=== PATIENT | male | born 1955 | race Caucasian/White ===

== ENCOUNTER 2018-02-19 01:48 | Inpatient (IN) ==
[2018-02-19] MEDS ORDERED: Dexamethasone Inj 20 MG/5 ML Vial IV.PUSH ONE (01:58)
[2018-02-19 02:13] LABS: Baso # (Auto) 0.1 th/mm3 (0.0-0.2); Baso % (Auto) 1.4 % (0.0-2.0); Eos # (Auto) 0.2 th/mm3 (0.0-0.4); Eos % (Auto) 1.8 % (0.0-4.0); Hematocrit 41.6 % (39.0-51.0); Hemoglobin 13.7 gm/dL (13.0-17.0); Lymph # (Auto) 1.3 th/mm3 (1.0-4.8); Lymph % (Auto) 13.4 % (9.0-44.0); Mean Corpuscular HGB Conc 32.9 % (32.0-36.0); Mean Corpuscular Hemoglobin 31.6 pg (27.0-34.0); Mean Platelet Volume 7.9 fL (7.0-11.0); Mono % (Auto) 9.9 % (0.0-8.0); Neut # (Auto) 7.1 th/mm3 (1.8-7.7); Neut % (Auto) 73.5 % (16.0-70.0); Platelet Count 320 th/mm3 (150-450); Red Blood Count 4.34 mil/mm3 (4.50-5.90); White Blood Count 9.7 th/mm3 (4.0-11.0)
[2018-02-19 02:23] LABS: Chloride 92 meq/L (98-107); Potassium 4.4 meq/L (3.5-5.1); Sodium 129 meq/L (136-145)
[2018-02-19 02:26] LABS: Albumin 3.3 g/dL (3.4-5.0); Anion Gap 7 meq/L (5-15); Calcium 8.1 mg/dL (8.5-10.1); Carbon Dioxide 30.4 meq/L (21.0-32.0); Glucose,Random 190 mg/dL (74-106)
[2018-02-19 02:27] LABS: Activated Partial Thrombo Time 26.6 sec (23.4-31.7); Blood Urea Nitrogen 10 mg/dL (7-18); Prothrombin Time 10.2 sec (9.8-11.6)
[2018-02-19 02:29] LABS: Alanine Aminotransferase 36 U/L (12-78); Aspartate Aminotransferase 48 U/L (15-37)
[2018-02-19 02:30] LABS: Glomerular Filtration Rate Greater Than 89 mL/min (>89)
[2018-02-19 02:31] LABS: Total Protein 8.2 g/dL (6.4-8.2)
[2018-02-19 02:32] LABS: Alkaline Phosphatase 108 U/L (45-117); Creatine Kinase 336 U/L (39-308)
--- NOTE | 2018-02-19 02:51 | XR ---
EXAM DATE: 02/19/2018 2:25 AM EST AGE/SEX: 62 years / Male INDICATIONS: Short of breath. CLINICAL DATA: This is the patient's initial encounter. Patient reports that signs and symptoms have been present for 1 day and indicates a pain score of 0/10. MEDICAL/SURGICAL HISTORY: None. None. COMPARISON: No prior exams available for comparison. FINDINGS: A single AP view of the chest demonstrates patchy parenchymal consolidations involving both lung base s. No effusions. Heart is mildly enlarged. Port-A-Cath overlies the right chest. CONCLUSION: Bibasilar infiltrates. Electronically signed by: Anshu Harkins MD Board Certified Radiologist 02/19/2018 2:50 AM EST
[2018-02-19] MEDS ORDERED: Azithromycin Inj 500 MG in Sodium Chlor 0.9% Inj 250 ML IV.SIG ONE (02:57)
[2018-02-19 03:17] LABS: CKMB Percent 2.5 % (0.0-4.0); Creatine Kinase MB 8.3 ng/mL (0.5-3.6)
--- NOTE | 2018-02-19 03:20 | ED ---
HPI General Chief complaint: Shortness of Breath/Dyspnea Stated complaint: diff breathing Time Seen by Provider: 02/19/18 01:52 Source: patient Mode of arrival: ambulatory Limitations: no limitations History of Present Illness HPI narrative: Patient is a 62-year-old male, with history of throat cancer status post radiation and chemotherapy, who comes in complaining of shortness of breath. He says he has been short of breath for a little while now, but has been getting worse. He has seen his doctor and was put on Bactrim, but he says that he broke out in hives tonight from it. He says he has had some swelling in his throat since having treatment for the cancer and has some difficulty swallowing food, this is not increased. He was last on steroids about a month ago. He denies fever or chills. Severity is moderate. Related Data Home Medications Medication Instructions Recorded Confirmed lisinopril 20 mg PO DAILY 02/19/18 02/19/18 metformin 1,000 mg PO BID 02/19/18 02/19/18 methadone 20 mg PO Q6H 02/19/18 02/19/18 Allergies Allergy/AdvReac Type Severity Reaction Status Date / Time Sulfa (Sulfonamide Allergy Severe blisters Verified 02/19/18 03:08 Antibiotics) *MDRO Multi-Drug Resistant AdvReac Unknown unknown Uncoded 02/19/18 02:15 Organism Review of Systems ROS: all other systems reviewed are negative Constitutional Denies chills and Denies fever(s) ENT Denies sore throat Cardiovascular Denies chest pain and Reports dyspnea Respiratory Reports cough, Reports dyspnea and Reports wheezing Gastrointestinal Denies nausea and Denies vomiting Musculoskeletal Denies myalgias and Denies arthralgias Integumentary/Breasts Denies sores and Denies wounds Neurologic Denies focal weakness and Denies numbness PMFSH Medical History Medical History Diabetes (Acute) History of cancer chemotherapy (Acute) History of throat cancer (Acute) Hx of radiation therapy (Acute) Hypertension (Acute) Surgical History Surgical History History of cholecystectomy (Acute) History of hernia surgery (Acute) Social History Social History Substance History: Past History Smoking Status: Current some day smoker Tobacco Type: Cigarettes How Often Do You Have a Drink Containing Alcohol: 2 to 3 times a week Recent Out of Country Travel within the Last 8 Weeks: No Immunization History Tetanus Immunization: >5 Years Exam Narrative Exam Narrative: GENERAL: Awake and alert, in mild respiratory distress. SKIN: Focused skin assessment warm/dry. HEAD: Atraumatic. Normocephalic. EYES: Pupils equal and round. No scleral icterus. No injection or drainage. ENT: Thrush present. Mucous membranes pink and moist. NECK: Trachea midline. No JVD. CARDIOVASCULAR: Regular rate and rhythm. No murmur appreciated. RESPIRATORY: No accessory muscle use. Diffuse wheezing. Breath sounds equal bilaterally. GASTROINTESTINAL: Abdomen soft, non-tender, nondistended. MUSCULOSKELETAL: No obvious deformities. No clubbing. No cyanosis. Bilateral lower extremity edema. NEUROLOGICAL: Awake and alert. No obvious cranial nerve deficits. Motor grossly within normal limits. Normal speech. PSYCHIATRIC: Appropriate mood and affect; insight and judgment normal. Course Initial Documented Vital Signs Temperature 98.3 F 02/19/18 01:50 Pulse Rate 115 H 02/19/18 01:50 Respiratory Rate 24 02/19/18 01:50 Blood Pressure 190/100 H 02/19/18 01:50 Pulse Oximetry 88 L 02/19/18 01:50 Last Documented Vital Signs Temperature 98.3 F 02/19/18 01:50 Pulse Rate 96 H 02/19/18 02:10 Respiratory Rate 22 02/19/18 02:10 Blood Pressure 190/100 H 02/19/18 01:50 Pulse Oximetry 94 L 02/19/18 02:13 Medical Decision Making MDM Narrative Medical decision making narrative: Patient is a 62-year-old male who comes in complaining of shortness of breath. Exam shows diffuse wheezing. IV established, labs sent. Patient given 3 DuoNeb's as well as a dose of Decadron. Chest x-ray is concerning for bilateral infiltrates. Given Rocephin and azithromycin. Patient with low oxygen saturation on room air. This improved to 95% on nasal cannula. Patient will require admission for further management. Medical Screen Exam Complete: Yes Emergency Medical Condition: Yes Differential Diagnosis Differential Diagnosis: Pneumonia versus COPD versus allergic reaction Medical Records Medical records reviewed: Yes I reviewed the patient's medical records. Lab Data Lab results reviewed: Yes I reviewed the patient's lab results. Result diagrams: 02/19/18 02:00 02/19/18 02:00 Lab Results 02/19/18 02/19/18 02/19/18 Range/Units 02:00 02:00 02:00 CBC w Diff Auto diff final WBC 9.7 (4.0-11.0) th/mm3 RBC 4.34 L (4.50-5.90) mil/mm3 Hgb 13.7 (13.0-17.0) gm/dL Hct 41.6 (39.0-51.0) % MCV 96.0 (80.0-100.0) fL MCH 31.6 (27.0-34.0) pg MCHC 32.9 (32.0-36.0) % RDW 13.0 (11.6-17.2) % Plt Count 320 (150-450) th/mm3 MPV 7.9 (7.0-11.0) fL Neut % (Auto) 73.5 H (16.0-70.0) % Lymph % (Auto) 13.4 (9.0-44.0) % [place] % (Auto) 9.9 H (0.0-8.0) % Eos % (Auto) 1.8 (0.0-4.0) % Baso % (Auto) 1.4 (0.0-2.0) % Neut # (Auto) 7.1 (1.8-7.7) th/mm3 Lymph # (Auto) 1.3 (1.0-4.8) th/mm3 [place] # (Auto) 1.0 H (0.0-0.9) th/mm3 Eos # (Auto) 0.2 (0.0-0.4) th/mm3 Baso # (Auto) 0.1 (0.0-0.2) th/mm3 WBC Differential . Differential Comment . PT 10.2 (9.8-11.6) sec INR 1.0 Ratio APTT 26.6 (23.4-31.7) sec Sodium 129 L (136-145) meq/L Potassium 4.4 (3.5-5.1) meq/L Chloride 92 L (98-107) meq/L Carbon Dioxide 30.4 (21.0-32.0) meq/L Anion Gap 7 (5-15) meq/L BUN 10 (7-18) mg/dL Creatinine 0.83 (0.60-1.30) mg/dL Estimated GFR Greater than 89 (>89) mL/min Random Glucose 190 H (74-106) mg/dL Calcium 8.1 L (8.5-10.1) mg/dL Total Bilirubin 0.5 (0.2-1.0) mg/dL AST 48 H (15-37) U/L ALT 36 (12-78) U/L Alkaline Phosphatase 108 (45-117) U/L Total Creatine Kinase 336 H (39-308) U/L Troponin I Less than 0.02 L (0.02-0.05) ng/mL POC B-Natriuretic Pept 109 H (0-100) pg/mL B-Natriuretic Peptide Total Protein 8.2 (6.4-8.2) g/dL Albumin 3.3 L (3.4-5.0) g/dL 02/19/18 Range/Units 02:00 CBC w Diff WBC (4.0-11.0) th/mm3 RBC (4.50-5.90) mil/mm3 Hgb (13.0-17.0) gm/dL Hct (39.0-51.0) % MCV (80.0-100.0) fL MCH (27.0-34.0) pg MCHC (32.0-36.0) % RDW (11.6-17.2) % Plt Count (150-450) th/mm3 MPV (7.0-11.0) fL Neut % (Auto) (16.0-70.0) % Lymph % (Auto) (9.0-44.0) % [place] % (Auto) (0.0-8.0) % Eos % (Auto) (0.0-4.0) % Baso % (Auto) (0.0-2.0) % Neut # (Auto) (1.8-7.7) th/mm3 Lymph # (Auto) (1.0-4.8) th/mm3 [place] # (Auto) (0.0-0.9) th/mm3 Eos # (Auto) (0.0-0.4) th/mm3 Baso # (Auto) (0.0-0.2) th/mm3 WBC Differential Differential Comment PT (9.8-11.6) sec INR Ratio APTT (23.4-31.7) sec Sodium (136-145) meq/L Potassium (3.5-5.1) meq/L Chloride (98-107) meq/L Carbon Dioxide (21.0-32.0) meq/L Anion Gap (5-15) meq/L BUN (7-18) mg/dL Creatinine (0.60-1.30) mg/dL Estimated GFR (>89) mL/min Random Glucose (74-106) mg/dL Calcium (8.5-10.1) mg/dL Total Bilirubin (0.2-1.0) mg/dL AST (15-37) U/L ALT (12-78) U/L Alkaline Phosphatase (45-117) U/L Total Creatine Kinase (39-308) U/L Troponin I (0.02-0.05) ng/mL POC B-Natriuretic Pept (0-100) pg/mL B-Natriuretic Peptide ND Total Protein (6.4-8.2) g/dL Albumin (3.4-5.0) g/dL Imaging Data Radiologist's impression: Chest X-Ray 02/19/18 01:58 CONCLUSION: Bibasilar infiltrates. Discharge Plan Physicians Team ED Provider: Manjula [facility] Primary Care Provider: Porfirio French Rxs /Orders / Referrals /Forms Prescriptions: No Action metformin 500 mg Tablet 1,000 mg PO BID RF: 0 methadone 10 mg Tablet 20 mg PO Q6H RF: 0 lisinopril 20 mg Tablet 20 mg PO DAILY RF: 0 Status ED Status: With Doctor
[2018-02-19] MEDS ORDERED: Metoprolol Inj 5 MG/5 ML Vial IV.PUSH ONE (03:35)
[2018-02-19] MEDS ORDERED: Acetaminophen 325 MG Tablet PO PRN (03:37)
[2018-02-19] MEDS ORDERED: Bisacodyl 10 MG Supp RECTAL PRN (03:37)
[2018-02-19] MEDS ORDERED: Dextrose 50% in Water 50 ML Vial IV.PUSH PRN (03:38)
[2018-02-19] MEDS: Sod Chloride 0.9% Inj 1,000 ML IV.CONT SCH ×2 (03:55→23:15)
[2018-02-19] MEDS: Methadone 10 MG Tablet PO SCH ×5 (06:07→23:12)
[2018-02-19] MEDS: Heparin - SQ 10,000 UNITS/ML Vial SQ SCH ×2 (06:08→17:09)
[2018-02-19] MEDS: Insulin NovoLOG Aspart Correctional Sugar Inj SQ SCH ×4 (08:23→23:15)
[2018-02-19] MEDS: Senna/Docusate Sodium 8.6/50 MG Tablet PO SCH ×2 (08:23→23:22)
[2018-02-19] MEDS ORDERED: Lisinopril 20 MG Tablet PO SCH (09:00)
--- NOTE | 2018-02-19 10:33 | P.HPIM ---
History of Present Illness Service: Hospitalist Primary Care Physician: Porfirio Saeed MD Chief Complaint: Cough, shortness of breath History of Present Illness: Mr. Heart is a pleasant 62-year-old male with a history of throat cancer status post chemo and radiation therapy who presents to the emergency department on 02/19/2018 due to shortness of breath as well as cough. He has had shortness of breath for a while. However, in the last 2-3 days he has been having worsening shortness of breath as well as cough production. He denies any fever or chills. On arrival temperature 98.3F, pulse 115, respiratory rate 24, 88% on room air, blood pressure 190/100. No leukocytosis noted. Sodium was 129, BUN 10, creatinine 0.83. Chest x-ray shows bibasilar infiltrates. Patient was a started on azithromycin and ceftriaxone. Past medical history: Diabetes mellitus, hypertension, throat cancer. Past surgical history: Appendectomy Social history: Patient continues to smoke 1-2 cigarettes a day and drinks 2 beers a day. Family history: Uncle and brother had cancer. Review of Systems Review of Systems: all other systems reviewed are negative PMFSH Medical History Medical History Diabetes (Acute) History of cancer chemotherapy (Acute) History of throat cancer (Acute) Hx of radiation therapy (Acute) Hypertension (Acute) Surgical History Surgical History History of cholecystectomy (Acute) History of hernia surgery (Acute) Social History Social History Substance History: No History of Abuse Second Hand Smoke Exposure: Yes Smoking Status: Current some day smoker Tobacco Type: Cigarettes How Often Do You Have a Drink Containing Alcohol: 2 to 3 times a week Recent Travel in [place] within the Last 8 Weeks: No Recent Out of Country Travel within the Last 8 Weeks: No Immunization History Tetanus Immunization: >5 Years Medications and Allergies Allergies Allergy/AdvReac Type Severity Reaction Status Date / Time Sulfa (Sulfonamide Allergy Severe blisters Verified 02/19/18 03:08 Antibiotics) *MDRO Multi-Drug Resistant AdvReac Unknown unknown Uncoded 02/19/18 02:15 Organism Home Medications Medication Instructions Recorded Confirmed Type lisinopril 20 mg PO DAILY 02/19/18 02/19/18 History metformin 1,000 mg PO BID 02/19/18 02/19/18 History methadone 20 mg PO Q6H 02/19/18 02/19/18 History Active Medications: Active Medications Acetaminophen (Tylenol) 650 mg PO Q4H PRN PRN Reason: Temp > 100.4 Al Hydroxide/Mg Hydroxide (Milk Of Magnesia Liq) 30 ml PO Q12H PRN PRN Reason: Mild Constipation Albuterol (Duoneb Neb (Prn)) 1 ampul NEB Q4HR NEB PRN PRN Reason: SOB/Wheezing Bisacodyl (Dulcolax Supp) 10 mg RECTAL DAILY PRN PRN Reason: SEVERE CONSITIPATION Clonidine HCl (Catapres) 0.1 mg PO Q6H PRN PRN Reason: BP > 175 systolic Last Admin: 02/19/18 10:00 Dose: 0.1 mg Dextrose (D50w Vial) 50 ml IV.PUSH UNSCH PRN PRN Reason: PER HYPOGLYCEMIA PROTOCOL Glucagon (Glucagon Inj) 1 mg OTHER PRN PRN PRN Reason: for Hypoglycemia Protocol Heparin Sodium (Porcine) (Heparin Inj) 5,000 units SQ Q12H [facility] Last Admin: 02/19/18 06:08 Dose: 5,000 units Azithromycin 500 mg/ Sodium (Chloride) 250 mls @ 250 mls/hr IV.SIG ONCE ONE Stop: 02/20/18 04:34 Ceftriaxone Sodium 1,000 mg/ (Sodium Chloride) 100 mls @ 200 mls/hr IV.SIG Q24H MICHAEL Sodium Chloride (Ns Inj) 1,000 mls @ 70 mls/hr IV.CONT .[id number] [facility] Last Admin: 02/19/18 03:55 Dose: 70 mls/hr Insulin Aspart (Novolog Insulin Correctional Sugar Inj) 0 unit SQ ACHS AND 3AM MICHAEL; Protocol Last Admin: 02/19/18 08:23 Dose: 3 unit Lactulose (Lactulose Liq) 30 ml PO DAILY PRN PRN Reason: SEVERE CONSITIPATION Lisinopril (Prinivil) 20 mg PO DAILY [facility] Last Admin: 02/19/18 08:22 Dose: 20 mg Methadone HCl (Dolophine) 20 mg PO Q6H [facility] Last Admin: 02/19/18 06:07 Dose: 20 mg Ondansetron HCl (Zofran Inj) 4 mg IV.PUSH Q6H PRN PRN Reason: NAUSEA OR VOMITING Senna/Docusate Sodium (Jasmin-Colace) 1 tab PO BID [facility] Last Admin: 02/19/18 08:23 Dose: 1 tab Sennosides (Senokot) 17.2 mg PO Q12H PRN PRN Reason: Moderate Constipation Sodium Chloride (Ns Flush) 2 ml IV.FLUSH BID [facility] Last Admin: 02/19/18 08:23 Dose: Not Given Sodium Chloride (Ns Flush) 2 ml IV.FLUSH PRN PRN PRN Reason: FLUSH AFTER USING IV ACCESS Physical Exam Vital signs: Vital Signs 02/19/18 01:50 02/19/18 02:10 02/19/18 02:13 Temperature 98.3 F Pulse Rate 115 H 96 H Respiratory Rate 24 22 Blood Pressure 190/100 H Pulse Oximetry 88 L 94 L 02/19/18 03:26 02/19/18 04:35 02/19/18 08:57 Temperature Pulse Rate 98 H 95 H Respiratory Rate 20 20 Blood Pressure 176/101 H 198/91 H Pulse Oximetry 97 97 93 L Intake & Output 02/18/18 02/19/18 02/19/18 18:59 06:59 18:59 Intake Total 590 / 590 Balance 590 / 590 Weight 92.986 kg Intake: IV 350 / 350 Azithromycin Inj 500 MG In NS 250 / 250 Inj 250 ML @ 250 mls/hr IV.SIG ONCE ONE Rx#:[id number] Rocephin Inj 1,000 MG In NS Inj 100 / 100 100 ML @ 200 mls/hr IV.SIG ONCE ONE Rx#:[id number] Oral 240 / 240 Other: # Voids 1 Weight On Admission 93.416 kg Narrative: GENERAL: This is a well-nourished, well-developed patient, in no apparent distress. SKIN: No rashes, ecchymoses or lesions. Warm and dry. His skin around anterior neck has significant radiation related changes. HEAD: Atraumatic. Normocephalic. No temporal or scalp tenderness. EYES: Pupils equal round and reactive. No injection or drainage. ENT: Nose without bleeding, purulent drainage or septal hematoma. Airway patent. NECK: Trachea midline. No lymphadenopathy. Supple, nontender, no meningeal signs. CARDIOVASCULAR: Regular rate and rhythm without murmurs, gallops, or rubs. No JVD. RESPIRATORY: Moderate air entry. Scattered Rales noted. GASTROINTESTINAL: Abdomen soft, non-tender, nondistended. No guarding. MUSCULOSKELETAL: Extremities without clubbing, cyanosis, or edema. NEUROLOGICAL: Awake and alert. Cranial nerves II through XII intact. No focal neurological deficits. Normal speech. Results Labs CBC & Chem 7: 02/19/18 02:00 02/19/18 02:00 Imaging Impressions Chest X-Ray 02/19/18 01:58 CONCLUSION: Bibasilar infiltrates. Caprini VTE Risk Assessment Caprini VTE Risk Assessment: Moderate/High Risk (score >= 2) Caprini Risk Assessment Model: Point Value = 1 Point Value = 2 Point Value = 3 Point Value = 5 Age 41-60 Minor surgery BMI > 25 kg/m2 Swollen legs Varicose veins or History of unexplained or recurrent spontaneous Oral contraceptives or hormone replacement Sepsis (< 1 month) Serious lung disease, including pneumonia (< 1 month) Abnormal pulmonary function Acute myocardial infarction Congestive heart failure (< 1 month) History of inflammatory bowel disease Medical patient at bed rest Age 61-74 Arthroscopic surgery Major open surgery (> 45 min) Laparoscopic surgery (> 45 min) Malignancy Confined to bed (> 72 hours) Immobilizing plaster cast Central venous access Age >= 75 History of VTE Family history of VTE Factor V Leiden Prothrombin [id number] Lupus anticoagulant Anticardiolipin antibodies Elevated serum homocysteine Heparin-induced thrombocytopenia Other congenital or acquired thrombophilia Stroke (< 1 month) Elective arthroplasty Hip, pelvis, or leg fracture Acute spinal cord injury (< 1 month) Prophylaxis Regimen: Total Risk Factor Score Risk Level Prophylaxis Regimen 0-1 Low Early ambulation 2 Moderate Order ONE of the following: *Sequential Compression Device (SCD) *Heparin 5000 units SQ BID 3-4 Higher Order ONE of the following medications: *Heparin 5000 units SQ TID *Enoxaparin/Lovenox 40 mg SQ daily (WT < 150 kg, CrCl > 30 mL/min) *Enoxaparin/Lovenox 30 mg SQ daily (WT < 150 kg, CrCl > 10-29 mL/min) *Enoxaparin/Lovenox 30 mg SQ BID (WT < 150 kg, CrCl > 30 mL/min) AND/OR *Sequential Compression Device (SCD) 5 or more Highest Order ONE of the following medications: *Heparin 5000 units SQ TID (Preferred with Epidurals) *Enoxaparin/Lovenox 40 mg SQ daily (WT < 150 kg, CrCl > 30 mL/min) *Enoxaparin/Lovenox 30 mg SQ daily (WT < 150 kg, CrCl > 10-29 mL/min) *Enoxaparin/Lovenox 30 mg SQ BID (WT < 150 kg, CrCl > 30 mL/min) AND *Sequential Compression Device (SCD) Assessment and Plan Plan Mr. Heart is a pleasant 62-year-old male with a history of diabetes mellitus, hypertension, throat cancer who presents to the emergency department on 2018 due to worsening shortness of breath as well as productive cough. Chest x- ray showed bilateral infiltrates. Acute community-acquired pneumonia Probable radiation pneumonitis Patient received azithromycin 500 mg IV daily, ceftriaxone 1 g IV daily. We will start patient on Levaquin 750 mg p.o. daily for 6 additional days. -Patient is currently on room air. -Will start patient on Symbicort. Supplemental O2 to keep O2 > 90%. Hypertension Diabetes mellitus -Discontinue Lisinopril and start Procardia 60mg Qday. -If needed, consider Losartan instead of Lisinopril. -Continue sliding scale insulin. We will add low-dose Levemir 5 units nightly Chronic methadone treatment -continue methadone 20 mg p.o. every 6 hours. Full code. If prolonged hospitalization anticipated, consider starting Lovenox for DVT prophylaxis. Discharge plan: Patient can likely be discharged home tomorrow on Levaquin, Symbicort as well as BP meds. H&P: Quality VTE Deep Vein Thrombosis/Pulmonary Embolism Present on Admission: No
[2018-02-19] MEDS: Budesonide-Formoterol 80/4.5 MCG 6.9 GM Inhaler INH SCH ×2 (12:11→23:22)
[2018-02-19] MEDS: levoFLOXacin 750 MG Tablet PO SCH (15:11)
[2018-02-19] MEDS ORDERED: Melatonin 5 MG Tablet PO ONE (23:46)
[2018-02-20] MEDS ORDERED: Azithromycin Inj 500 MG in Sodium Chlor 0.9% Inj 250 ML IV.SIG ONE (03:35)
[2018-02-20] MEDS: Insulin NovoLOG Aspart Correctional Sugar Inj SQ SCH ×2 (03:39→09:06)
[2018-02-20] MEDS: Methadone 10 MG Tablet PO SCH (05:55)
[2018-02-20] MEDS: Heparin - SQ 10,000 UNITS/ML Vial SQ SCH (05:56)
[2018-02-20 07:06] LABS: Baso % (Auto) 0.3 % (0.0-2.0); Eos # (Auto) 0.1 th/mm3 (0.0-0.4); Eos % (Auto) 0.6 % (0.0-4.0); Hematocrit 43.5 % (39.0-51.0); Hemoglobin 14.5 gm/dL (13.0-17.0); Lymph # (Auto) 1.2 th/mm3 (1.0-4.8); Lymph % (Auto) 12.4 % (9.0-44.0); Mean Corpuscular HGB Conc 33.3 % (32.0-36.0); Mean Corpuscular Hemoglobin 32.2 pg (27.0-34.0); Mean Corpuscular Volume 96.7 fL (80.0-100.0); Mean Platelet Volume 8.5 fL (7.0-11.0); Mono # (Auto) 1.1 th/mm3 (0.0-0.9); Mono % (Auto) 11.6 % (0.0-8.0); Neut # (Auto) 7.4 th/mm3 (1.8-7.7); Neut % (Auto) 75.1 % (16.0-70.0); Platelet Count 318 th/mm3 (150-450); Red Cell Distribution Width 14.1 % (11.6-17.2); White Blood Count 9.8 th/mm3 (4.0-11.0)
[2018-02-20 07:11] LABS: Chloride 94 meq/L (98-107); Potassium 3.9 meq/L (3.5-5.1); Sodium 130 meq/L (136-145)
[2018-02-20 07:16] LABS: Calcium 8.6 mg/dL (8.5-10.1)
[2018-02-20 07:17] LABS: Anion Gap 6 meq/L (5-15); Blood Urea Nitrogen 17 mg/dL (7-18); Carbon Dioxide 29.7 meq/L (21.0-32.0); Glucose,Random 117 mg/dL (74-106)
[2018-02-20 07:20] LABS: Glomerular Filtration Rate Greater Than 89 mL/min (>89)
[2018-02-20 08:26] VITALS: BP 161/78; PULSE 67; RESP 16; TEMP 97.2; O2SAT 96
[2018-02-20] MEDS: levoFLOXacin 750 MG Tablet PO SCH (09:14)
[2018-02-20] MEDS: Senna/Docusate Sodium 8.6/50 MG Tablet PO SCH (09:14)
[2018-02-20] MEDS: Budesonide-Formoterol 80/4.5 MCG 6.9 GM Inhaler INH SCH (09:15)
[2018-02-20] MEDS: Sod Chloride 0.9% Inj 1,000 ML IV.CONT SCH (09:49)
--- NOTE | 2018-02-20 18:27 | P.PNIM ---
Subjective Interval history: Patient was seen in the morning. Follow up for pneumonia, radiation pneumonitis. Patient is doing well, on room air, ambulating without any difficulty. Discussed with patient as well as his son. Physical Exam Vital signs: Vital Signs 02/19/18 19:50 02/19/18 20:00 02/20/18 00:00 Temperature 97.3 F L 97.4 F L Pulse Rate 85 84 84 Respiratory Rate 20 18 18 Blood Pressure 163/74 H 157/78 H Pulse Oximetry 96 93 L 95 02/20/18 02:23 02/20/18 04:00 02/20/18 07:35 Temperature 97.1 F L Pulse Rate 74 103 H Respiratory Rate 18 18 20 Blood Pressure 158/85 H Pulse Oximetry 96 94 L 02/20/18 08:25 Temperature 97.2 F L Pulse Rate 67 Respiratory Rate 16 Blood Pressure 161/78 H Pulse Oximetry 96 Intake & Output 02/19/18 02/20/18 02/20/18 18:59 06:59 18:59 Intake Total 1221 / 1221 1480 / 1480 Balance 1221 / 1221 1480 / 1480 Weight 93 kg Intake: IV 1000 / 1000 1000 / 1000 NS Inj 1,000 ML @ 70 mls/hr IV. 1000 / 1000 1000 / 1000 CONT .[id number] MICHAEL Rx#: [id number] Oral 221 / 221 480 / 480 Other: # Voids 4 3 Date of Last Bowel Movement 02/18/18 02/18/18 Narrative: GENERAL: Alert, oriented x 3, NAD. SKIN: Warm and dry. Radiation related skin changes noted on the anterior neck. HEAD: Normocephalic. EYES: No scleral icterus. No injection or drainage. NECK: Supple, trachea midline. No JVD or lymphadenopathy. CARDIOVASCULAR: Regular rate and rhythm without murmurs, gallops, or rubs. RESPIRATORY: Breath sounds equal bilaterally. No accessory muscle use. GASTROINTESTINAL: Abdomen soft, non-tender, nondistended. MUSCULOSKELETAL: No cyanosis, or edema. BACK: Nontender without obvious deformity. No CVA tenderness. Results Labs CBC & Chem 7: 02/20/18 06:18 02/20/18 06:18 Assessment and Plan Plan Mr. Heart is a pleasant 62-year-old male with a history of diabetes mellitus, hypertension, throat cancer who presents to the emergency department on 2018 due to worsening shortness of breath as well as productive cough. Chest x- ray showed bilateral infiltrates. Acute community-acquired pneumonia Probable radiation pneumonitis Patient received azithromycin 500 mg IV daily, ceftriaxone 1 g IV daily. We will continue patient on Levaquin 750 mg p.o. daily -Patient is currently on room air. -Symbicort. Supplemental O2 to keep O2 > 90%. Hypertension Diabetes mellitus -Procardia 60mg Qday. -If needed, consider Losartan instead of Lisinopril. -Continue sliding scale insulin. Chronic methadone treatment -continue methadone 20 mg p.o. every 6 hours. Full code. Ambulation Overall, patient is doing well. BP is improved. Recommended patient to follow up with his PCP within 1-2 weeks. BP meds should be adjusted based on home BP reading. Also advised patient to obtain a pulmologist. Discharge patient to home Condition on discharge: Improved Regular Diet as tolerated Ad Benita activity Rx written: Levaquin Symbicort Follow-up with primary care physician within 7-10 days and also obtain a pulmologist. Progress Note: Quality VTE Deep Vein Thrombosis/Pulmonary Embolism Present on Admission: No
== END 2018-02-20 10:32 | disposition home or self-care (01) | DRG 195 ==
LOC: PHED 01:48 → PHEDA 03:35 → INTOOBSV 03:35 → PH3 05:47
PROVIDERS: ADMIT Hospitalist; ATTEND Hospitalist
CPT/HCPCS: 71010; 71045; 80048; 80053; 82550; 82552; 82948; 82962; 84484; 85025; 85610; 85730; 90765; 90775; 94640; 94664; 94665; 96365; 96375; 99285; J0456; J0696; J1100; J1644; J1815; J7030; J7050